=== PATIENT | male | born 1985 | race Caucasian/White ===

== ENCOUNTER 2018-08-28 17:07 | Emergency (ER) | payer BC ==
[2018-08-28 17:14] VITALS: BP 155/82
--- NOTE | 2018-08-28 17:28 | UC ---
Cardiac HPI - HPI Summary HPI Summary: 32-year-old male comes in with a chief complaint of chest pain and vomiting blood. About 2 hours ago patient started with some lower midline chest pain. He vomited initially it was mostly food and then he said he had bright red blood about a 10 cm diameter area. The pain was 8 out of 10 at its worst it's slightly calm down since that time. He does not feel lightheaded. The pain does not radiate up into his neck or his arm. He is not short of breath. He does have GERD and is being treated with antacid. - History of Current Complaint Chief Complaint: UCChestPain Stated Complaint: CHEST PAIN Time Seen by Provider: 08/28/18 17:12 Pain Intensity: 9 - Allergy/Home Medications Allergies/Adverse Reactions: Allergies Allergy/AdvReac Type Severity Reaction Status Date / Time clarithromycin [From Biaxin] Allergy Vomiting Verified 08/28/18 17:11 Home Medications: Home Medications raNITIdine HCl [Ranitidine HCl] 1 each PO DAILY 08/28/18 [History Confirmed ] PMH/Surg Hx/FS Hx/Imm Hx Previously Healthy: Yes GI/ History: Gastroesophageal Reflux - Surgical History Surgical History: Yes Surgery Procedure, Year, and Place: TONSILLECTOMY ADENOIDECTOMY - Family History Known Family History: Positive: Non-Contributory - Social History Alcohol Use: Occasionally Substance Use Type: None Smoking Status (MU): Never Smoked Tobacco Review of Systems All Other Systems Reviewed And Are Negative: Yes Constitutional: Positive: Negative Skin: Positive: Negative Eyes: Positive: Negative ENT: Positive: Negative Respiratory: Positive: Negative Cardiovascular: Positive: Chest Pain Gastrointestinal: Positive: Vomiting Motor: Positive: Negative Neurovascular: Positive: Negative Musculoskeletal: Positive: Negative Neurological: Positive: Negative Psychological: Positive: Negative Is Patient Immunocompromised?: No Physical Exam Triage Information Reviewed: Yes Appearance: Well-Appearing, Well-Nourished, Pain Distress - MILD Vital Signs: Initial Vital Signs Temp 97.2 F 08/28/18 17:09 Pulse 81 08/28/18 17:09 Resp 22 08/28/18 17:09 BP 155/82 08/28/18 17:09 Pulse Ox 100 08/28/18 17:09 Vital Signs Reviewed: Yes Eye Exam: Normal Eyes: Positive: Conjunctiva Clear Neck exam: Normal Neck: Positive: Supple Respiratory: Positive: Lungs clear, Normal breath sounds, No respiratory distress Cardiovascular: Positive: RRR Abdomen Description: Positive: Nontender, Soft Bowel Sounds: Positive: Present Musculoskeletal Exam: Normal Musculoskeletal: Positive: Strength Intact, ROM Intact Neurological Exam: Normal Neurological: Positive: Alert, Muscle Tone Normal Psychological Exam: Normal Psychological: Positive: Age Appropriate Behavior Skin Exam: Normal - Assessment/Plan Course Of Treatment: I recommended the patient get further evaluation in the emergency department for evaluation of his chest pain and hemoptysis. Patient declined ambulance transport he prefers to go by POV. I talked to Dr. Walters physician assistant coach assistant coach in the emergency department. - Clinical Impression Provider Diagnosis: Chest pain, Hemoptysis Discharge - Sign-Out/Discharge Documenting (check all that apply): Patient Departure All imaging exams completed and their final reports reviewed: No Studies - Discharge Plan Condition: Stable Disposition: HOME-RECOMMEND TO ED Patient Education Materials: Chest Pain (ED), Hemoptysis (ED) Additional Instructions: GO DIRECTLY TO THE EMERGENCY DEPARTMENT FOR FURTHER EVALUATION OF YOUR CHEST PAIN AND VOMITING BLOOD. - Billing Disposition and Condition Condition: STABLE Disposition: Home-Recommend to ED
== END 2018-08-28 17:44 | disposition home health service (06) ==
LOC: UCCORT 17:07
DX: R07.89 Other chest pain (principal); R04.2 Hemoptysis; Z88.1 Allergy status to other antibiotic agents; K21.9 Gastro-esophageal reflux disease without esophagitis; Z79.899 Other long term (current) drug therapy
CPT/HCPCS: 93005; 99202; G0463